=== PATIENT | female | born 1955 | race African-American/Black ===

== ENCOUNTER → 2016-07-24 | Outpatient (CLI) | payer MEDICARE ==
--- NOTE | 2016-07-24 11:42 | RAD ---
Indication temporomandibular joint pain. AP and lateral views targeted to the temporomandibular joints were obtained. Additional open and closed views, again targeted to the TMJs was performed. The mandible appears unremarkable. The condyles appear normal. There is normal TMJ movement with opening and closing. Significant degenerative changes around either TMJ is not appreciated on plain films. IMPRESSION: Normal study
== END | disposition home or self-care (01) ==
LOC: RAD 10:44
PROVIDERS: ATTEND Family Medicine
DX: M26.602 Left temporomandibular joint disorder, unspecified (principal)
CPT/HCPCS: 70330

== ENCOUNTER → 2017-01-26 | Outpatient (CLI) | payer MEDICARE ==
--- NOTE | 2017-01-26 17:09 | RAD ---
2 view chest radiograph 01/26/2017 Clinical dictation: Back pain. Comparison: Chest radiograph 03/24/2011. Findings: Cardiac and mediastinal silhouettes are within normal limits. Patchy opacities in the left lower lobe best seen on the lateral view. No pleural effusion or pneumothorax. Multilevel thoracic spondylosis is noted. Impression: Patchy opacities in the left lower lobe which may represent aspiration or pneumonia. Follow-up 2 view chest radiograph is recommended to assess resolution.
== END | disposition home or self-care (01) ==
LOC: RAD 11:56
PROVIDERS: ATTEND Internal Medicine Cardiovascular Disease
DX: M54.9 Dorsalgia, unspecified (principal)
CPT/HCPCS: 71020

== ENCOUNTER 2017-10-13 10:36 | Emergency (ER) | payer MEDICARE ==
[2017-10-13] MEDS: HYDROcodone/APAP 7.5/325MG 1 TAB TABLET PO ×2 (11:41→14:54)
[2017-10-13] MEDS: amLODIPine BESYLATE 5 MG TABLET PO (13:18)
[2017-10-13 13:31] LABS: BASO % 1 % (0-3); EOS # 0.1 x10^3/uL (0.0-0.7); EOS % 3 % (0-3); HEMATOCRIT 40.1 % (36.0-47.0); HEMOGLOBIN 13.6 g/dL (12.0-15.5); LYMPH # 1.2 x10^3/uL (1.0-4.8); LYMPH % 31 % (24-48); MEAN CORPUSCULAR HEMOGLOBIN 27 pg (25-35); MEAN CORPUSCULAR HGB CONC 34 g/dL (31-37); MEAN CORPUSCULAR VOLUME 81 fL (79-100); MONO # 0.7 x10^3/uL (0.0-1.1); MONO % 18 % (0-9); NEUT # 1.8 x10^3uL (1.8-7.7); NEUT % 47 % (31-73); PLATELET COUNT 207 x10^3/uL (140-400); RED BLOOD COUNT 4.95 x10^6/uL (3.50-5.40); RED CELL DISTRIBUTION WIDTH 14.7 % (11.5-14.5); WHITE BLOOD COUNT 3.9 x10^3/uL (4.0-11.0)
[2017-10-13 13:39] LABS: ANION GAP 7 (6-14); BLOOD UREA NITROGEN 13 mg/dL (7-20); CALCIUM 9.9 mg/dL (8.5-10.1); CARBON DIOXIDE 29 mmol/L (21-32); CHLORIDE 104 mmol/L (98-107); CREATININE 0.8 mg/dL (0.6-1.0); GFR 87.7; GLUCOSE 102 mg/dL (70-99); POTASSIUM 4.2 mmol/L (3.5-5.1); SODIUM 140 mmol/L (136-145)
[2017-10-13 13:49] LABS: ADD MAN DIFF? yes
[2017-10-13 13:54] LABS: TROPONINI < 0.017 ng/mL (0.000-0.055)
[2017-10-13 14:55] LABS: % BANDS 6 % (0-9); % BASOS 1 % (0-3); % EOS 1 % (0-5); % LYMPHS 34 % (24-48); % MONOS 16 % (0-10); % SEGS 42 % (35-66)
[2017-10-13 14:56] LABS: PLT ESTIMATE ADEQUATE (ADEQUATE)
== END 2017-10-13 15:05 | disposition home or self-care (01) ==
LOC: ER 10:36
DX: M25.561 Pain in right knee (principal); R42 Dizziness and giddiness; M54.5 Low back pain; R51 Headache; I10 Essential (primary) hypertension; Z88.0 Allergy status to penicillin; Z88.5 Allergy status to narcotic agent; W18.39XA Other fall on same level, initial encounter; Y93.89 Activity, other specified; Y99.8 Other external cause status; Y92.238 Other place in hospital as the place of occurrence of the external cause
CPT/HCPCS: 29505; 36415; 73562; 73590; 80048; 84484; 85007; 85025; 93005; 99285-25